=== PATIENT | male | born 1955 | race Caucasian/White ===

== ENCOUNTER 2021-10-24 08:15 | Outpatient (CLI) | payer OTHER | END 2021-10-24 08:19 | disposition home or self-care (01) | LOC: NUCLEAR 08:15 | PROVIDERS: ATTEND Internal Medicine Cardiovascular Disease | DX: D49.1 Neoplasm of unspecified behavior of respiratory system (principal) ==

== ENCOUNTER 2022-07-04 11:30 | Inpatient (IN) | payer OTHER ==
[~2022-07-04] VITALS: Ht 55.9 cm; Wt 90.7 kg
== END 2022-07-12 17:47 | disposition designated cancer center or children's hospital (05) | DRG 281 ==
LOC: ER 11:30 → SEC-K 20:54 → ICU-2 20:54 → ICU 07-06 11:34 → MEDJ 07-07 07:29
PROVIDERS: ADMIT Internal Medicine; ATTEND Internal Medicine
PROC: B246ZZZ Ultrasonography of Right and Left Heart (ICD-10-PCS; principal; 2022-07-04)
PROC: BB24ZZZ Computerized Tomography (CT Scan) of Bilateral Lungs (ICD-10-PCS; 2022-07-05)
PROC: CB221ZZ Tomographic (Tomo) Nuclear Medicine Imaging of Lungs and Bronchi using Technetium 99m (Tc-99m) (ICD-10-PCS; 2022-07-05)
PROC: B246ZZ4 Ultrasonography of Right and Left Heart, Transesophageal (ICD-10-PCS; 2022-07-05)
PROC: 3E0F7GC Introduction of Other Therapeutic Substance into Respiratory Tract, Via Natural or Artificial Opening (ICD-10-PCS; 2022-07-05)
PROC: 4A12X4Z Monitoring of Cardiac Electrical Activity, External Approach (ICD-10-PCS; 2022-07-07)
DX: I21.A1 Myocardial infarction type 2 (principal); J90 Pleural effusion, not elsewhere classified; N17.8 Other acute kidney failure; J44.9 Chronic obstructive pulmonary disease, unspecified; I35.1 Nonrheumatic aortic (valve) insufficiency; Z95.3 Presence of xenogenic heart valve; I11.0 Hypertensive heart disease with heart failure; I50.9 Heart failure, unspecified; F17.200 Nicotine dependence, unspecified, uncomplicated; Z20.822 Contact with and (suspected) exposure to COVID-19